=== PATIENT | female | born 1990 | race American Indian/Alaskan Native ===

== ENCOUNTER 2020-11-18 04:22 | Emergency (ER) | payer SELFPAY ==
[2020-11-18 05:57] LABS: Basophils % (Auto) 0.5 % (0.0-1.8); Eosinophils # (Auto) 0.1 K/mm3 (0.0-0.4); Eosinophils % (Auto) 1.9 % (0.0-4.3); Hemoglobin 13.4 gm/dl (10.1-14.3); Lymphocytes # (Auto) 1.9 K/mm3 (1.2-5.4); Lymphocytes % (Auto) 31.2 % (13.4-35.0); Mean Corpuscular HGB Conc 34 % (30-34); Mean Corpuscular Volume 93 fl (79-97); Monocytes # (Auto) 0.7 K/mm3 (0.0-0.8); Monocytes % (Auto) 11.1 % (0.0-7.3); Platelet Count 228 K/mm3 (140-440); Red Blood Count 4.19 M/mm3 (3.65-5.03); Red Cell Distribution Width 13.2 % (13.2-15.2)
[2020-11-18 06:07] LABS: BUN/Creatinine Ratio 16; Blood Urea Nitrogen 11 mg/dL (7-17); Calcium 9.1 mg/dL (8.4-10.2); Hemolysis Index 3
--- NOTE | 2020-11-18 06:21 | Emergency Department Report ---
HPI - General Chief Complaint: Vaginal Bleeding Time Seen by Provider: 11/18/20 05:59 - HPI HPI: This is a 30-year-old female presents to the emergency department with a complaint of seeing some blood when she wipes after using the bathroom. This is concerning to the patient as she says that she is 5 weeks and 3 days . She denies any other vaginal bleeding. She denies any dysuria, vaginal discharge, abdominal or pelvic pain. With this she is with a 6-year-old child. She had multiple home positive test. Last week she went to a clinic where she had a positive urine test as well. She denies any other past medical history. ED Past Medical Hx - Past Medical History Previous Medical History?: No - Surgical History Past Surgical History?: No - Social History Smoking Status: Never Smoker Substance Use Type: None ED Review of Systems ROS: Stated complaint: BLEEDING/5WKS PREG Other details as noted in HPI Comment: All other systems reviewed and negative Constitutional: denies: chills, fever Eyes: denies: eye pain, vision change ENT: denies: ear pain, throat pain Respiratory: denies: cough, shortness of breath Cardiovascular: denies: chest pain, palpitations Gastrointestinal: denies: abdominal pain, vomiting Genitourinary: other (Mild vaginal bleeding seen when using the bathroom). de nies: dysuria Musculoskeletal: denies: back pain, arthralgia Skin: denies: rash, lesions Neurological: denies: headache, weakness Physical Exam - Physical Exam Vital Signs: Vital Signs 11/18/20 04:25 Temperature 98 F Pulse Rate 87 Respiratory 16 Rate Blood Pressure 120/87 [Right] O2 Sat by Pulse 98 Oximetry Physical Exam: GENERAL: The patient is well-developed well-nourished. HENT: Normocephalic. Atraumatic. Patient has moist mucous membranes. EYES: Extraocular motions are intact. NECK: Supple. Trachea is midline. CHEST/LUNGS: Clear to auscultation. There is no respiratory distress noted. HEART/CARDIOVASCULAR: Regular. There is no tachycardia. There is no murmur. ABDOMEN: Abdomen is soft, nontender. Patient has normal bowel sounds. SKIN: Skin is warm and dry. NEURO: The patient is awake, alert, and oriented. The patient is cooperative. The patient has no focal neurologic deficits. Normal speech. MUSCULOSKELETAL: There is no tenderness or deformity. There is no limitation range of motion. ED Course Vital Signs 11/18/20 04:25 Temperature 98 F Pulse Rate 87 Respiratory 16 Rate Blood Pressure 120/87 [Right] O2 Sat by Pulse 98 Oximetry - Consultations Consultation #1: 11/18/20 07:10 I spoke to the RETAIL MERCHANDISING MANAGER on-call, Dr. Montiel. He agrees that it does not han ear consistent with an ectopic given the beta hCG of 16 and the patient's lack of any abdominal/back/pelvic pains. He agrees that the patient should follow-up for a repeat beta-hCG and reevaluation in about 5 to 6 days. Ectopic precautions to be given. ED Medical Decision Making - Lab Data Result diagrams: 11/18/20 05:19 11/18/20 05:19 Lab Results 11/18/20 11/18/20 11/18/20 Range/Units 05:19 05:19 05:19 WBC 6.0 (4.5-11.0) K/mm3 RBC 4.19 (3.65-5.03) M/mm3 Hgb 13.4 (10.1-14.3) gm/dl Hct 39.0 (30.3-42.9) % MCV 93 (79-97) fl MCH 32 (28-32) pg MCHC 34 (30-34) % RDW 13.2 (13.2-15.2) % Plt Count 228 (140-440) K/mm3 Lymph % (Auto) 31.2 (13.4-35.0) % Swift % (Auto) 11.1 H (0.0-7.3) % Eos % (Auto) 1.9 (0.0-4.3) % Baso % (Auto) 0.5 (0.0-1.8) % Lymph # (Auto) 1.9 (1.2-5.4) K/mm3 Swift # (Auto) 0.7 (0.0-0.8) K/mm3 Eos # (Auto) 0.1 (0.0-0.4) K/mm3 Baso # (Auto) 0.0 (0.0-0.1) K/mm3 Seg Neutrophils % 55.3 (40.0-70.0) % Seg Neutrophils # 3.3 (1.8-7.7) K/mm3 Sodium 137 (137-145) mmol/L Potassium 4.2 (3.6-5.0) mmol/L Chloride 104.2 (98-107) mmol/L Carbon Dioxide 24 (22-30) mmol/L Anion Gap 13 mmol/L BUN 11 (7-17) mg/dL Creatinine 0.7 (0.6-1.2) mg/dL Estimated GFR > 60 ml/min BUN/Creatinine Ratio 16 % Glucose 83 (65-100) mg/dL Calcium 9.1 (8.4-10.2) mg/dL HCG, Quant 16.64 H (0-4) mIU/mL Blood Type 11/18/20 Range/Units 05:19 WBC (4.5-11.0) K/mm3 RBC (3.65-5.03) M/mm3 Hgb (10.1-14.3) gm/dl Hct (30.3-42.9) % MCV (79-97) fl MCH (28-32) pg MCHC (30-34) % RDW (13.2-15.2) % Plt Count (140-440) K/mm3 Lymph % (Auto) (13.4-35.0) % Swift % (Auto) (0.0-7.3) % Eos % (Auto) (0.0-4.3) % Baso % (Auto) (0.0-1.8) % Lymph # (Auto) (1.2-5.4) K/mm3 Swift # (Auto) (0.0-0.8) K/mm3 Eos # (Auto) (0.0-0.4) K/mm3 Baso # (Auto) (0.0-0.1) K/mm3 Seg Neutrophils % (40.0-70.0) % Seg Neutrophils # (1.8-7.7) K/mm3 Sodium (137-145) mmol/L Potassium (3.6-5.0) mmol/L Chloride (98-107) mmol/L Carbon Dioxide (22-30) mmol/L Anion Gap mmol/L BUN (7-17) mg/dL Creatinine (0.6-1.2) mg/dL Estimated GFR ml/min BUN/Creatinine Ratio % Glucose (65-100) mg/dL Calcium (8.4-10.2) mg/dL HCG, Quant (0-4) mIU/mL Blood Type O POSITIVE - Radiology Data Radiology results: report reviewed ULTRASOUND OBSTETRIC INDICATION / CLINICAL INFORMATION: Vaginal bleeding. Clinical Gestational Age (GA) in weeks, days: 5.2 TECHNIQUE: Transabdominal and Transvaginal. COMPARISON: None available. FINDINGS: GESTATIONAL SAC: Not seen YOLK SAC: Not seen EMBRYO/FETUS: Not seen Small nabothian cysts are noted in the cervix. ADNEXA: There is a 1.6 cm complex nodule in the left ovary. There are small follicular cysts. FREE FLUID: There is free fluid in the cul-de-sac ADDITIONAL FINDINGS: None. IMPRESSION: 1. No intrauterine is seen. 2. There is free fluid in the cul-de-sac. There is a 1.6 cm complex nodule in the left ovary. There is no increased vascularity. - Medical Decision Making This patient presents with some mild vaginal bleeding seen only while wiping. She is about 5 weeks and 3 days after having multiple home urine tests and 1+ urine test and a clinic. The patient had a transvaginal/ ultrasound that did not show any evidence of a intrauterine . There was a small left ovarian complex nodule and some mild fluid in the pelvic cul-de-sac. The patient has a beta-hCG of 16. Given the positive urine tests at home and in the clinic, which usually have a cut off of a beta-hCG of 50, this current beta-hCG and ultrasound appears most consistent with a spontaneous miscarriage. However, given the pelvic fluid and the ovarian complex nodule, I did speak with the RETAIL MERCHANDISING MANAGER on-call who agrees that the patient is safe for discharge home with outpatient follow-up. The patient later tells me that she has an appointment this afternoon to establish care with an RETAIL MERCHANDISING MANAGER. She was told to keep this appointment. She will return to the emergency department with any worsening of her symptoms or with any acute distress. Critical Care Time: No Critical care attestation.: If time is entered above; I have spent that time in minutes in the direct care of this critically ill patient, excluding procedure time. ED Disposition Clinical Impression: Threatened miscarriage Disposition: DC-01 TO HOME OR SELFCARE Is pt being admited?: No Condition: Stable Instructions: Threatened Miscarriage Additional Instructions: Please follow-up with your RETAIL MERCHANDISING MANAGER this morning as previously scheduled. Your beta hCG today was 16. Return to the emergency department with any worsening of your symptoms, new or concerning symptoms not addressed during this current emergency department visit, or with any acute distress. Please make sure you are seen immediately with any increased vaginal bleeding, sharp or cramping pelvic pains. Referrals: DAVID MARIE MD [Staff Physician] - 11/18/20 Time of Disposition: 07:12
--- NOTE | 2020-11-18 06:24 | Ultrasound Report ---
ULTRASOUND OBSTETRIC INDICATION / CLINICAL INFORMATION: Vaginal bleeding. Clinical Gestational Age (GA) in weeks, days: 5.2 TECHNIQUE: Transabdominal and Transvaginal. COMPARISON: None available. FINDINGS: GESTATIONAL SAC: Not seen YOLK SAC: Not seen EMBRYO/FETUS: Not seen Small nabothian cysts are noted in the cervix. ADNEXA: There is a 1.6 cm complex nodule in the left ovary. There are small follicular cysts. FREE FLUID: There is free fluid in the cul-de-sac ADDITIONAL FINDINGS: None. IMPRESSION: 1. No intrauterine is seen. 2. There is free fluid in the cul-de-sac. There is a 1.6 cm complex nodule in the left ovary. There i s no increased vascularity. Note: These findings could indicate too early to visualize or spontaneous . Ectopic cannot be excluded based upon this ultrasound. Correlation with serum beta hCG level is re commended. Follow-up ultrasound should be obtained as clinically warranted. Signer Name: Kirit John MD Signed: 11/18/2020 6:20 AM Workstation Name: [id number]
[2020-11-18 07:20] VITALS: BP 128/61
== END 2020-11-18 07:19 | disposition home or self-care (01) ==
LOC: ED 04:22
DX: O20.0 Threatened abortion (principal); Z79.899 Other long term (current) drug therapy; Z3A.01 Less than 8 weeks gestation of pregnancy
CPT/HCPCS: 36415; 76801; 76817; 80048; 84702; 85025; 86900; 86901

== ENCOUNTER 2021-04-03 11:29 | Emergency (ER) | payer MEDICAID ==
[2021-04-03 12:09] VITALS: BP 135/87
[2021-04-03 12:41] LABS: Basophils % (Auto) 0.3 % (0.0-1.8); Eosinophils % (Auto) 0.5 % (0.0-4.3); Hematocrit 39.8 % (30.3-42.9); Hemoglobin 13.1 gm/dl (10.1-14.3); Lymphocytes # (Auto) 2.3 K/mm3 (1.2-5.4); Lymphocytes % (Auto) 27.3 % (13.4-35.0); Mean Corpuscular HGB Conc 33 % (30-34); Mean Corpuscular Volume 92 fl (79-97); Monocytes # (Auto) 0.7 K/mm3 (0.0-0.8); Monocytes % (Auto) 8.3 % (0.0-7.3); Platelet Count 262 K/mm3 (140-440); Red Blood Count 4.33 M/mm3 (3.65-5.03); Red Cell Distribution Width 13.4 % (13.2-15.2)
[2021-04-03 13:02] LABS: Blood Urea Nitrogen 5 mg/dL (7-17); Calcium 8.7 mg/dL (8.4-10.2); Hemolysis Index 2
[2021-04-03 13:14] LABS: BUN/Creatinine Ratio 8
[2021-04-03] MEDS ORDERED: POTASSIUM CHLORIDE ER 20 MEQ TAB PO ONE (13:22)
[2021-04-03 13:34] LABS: Bilirubin,Urine NEG (Negative); Blood,Urine SM (Negative); Color,Urine Yellow (Yellow); Mucus,Urine 3+ /HPF; Urobilinogen,Urine < 2.0 mg/dL (<2.0)
--- NOTE | 2021-04-03 14:57 | Ultrasound Report ---
US OB <= 14 weeks fetus INDICATION / CLINICAL INFORMATION: pelvic pain. TECHNIQUE: Transabdominal. COMPARISON: None available. FINDINGS: UTERUS: Appears within normal limits. GESTATIONAL SAC: Well-defined oval shape and intrauterine in location. Measures 0.5 cm. YOLK SAC: None identified.. EMBRYO/FETUS: - [place]-Rump Length = no pole identified. ADNEXA: No significant abnormality. FREE FLUID: None. ADDITIONAL FINDINGS: None. IMPRESSION: 1. Gestational sac with no pole consistent with 5 weeks 2 days. Findings could be related to e faye intrauterine . Follow-up beta hCG and sonograms as clinically indicated. Signer Name: Marlon Lance MD Signed: 04/03/2021 2:52 PM Workstation Name: [id number]
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
--- NOTE | 2021-04-04 08:42 | Ultrasound Report ---
ULTRASOUND OBSTETRIC Indication: pelvic pain Findings: No intrauterine is identified. The right ovary appears abnormal and there is a complex 2.2 cm structure within the right adnexa with its significant peripheral Doppler flow. Within the uterus there is a 2 mm hypoechoic sac but is ultimately nonspecific no obvious yolk sac or pole is identified within this intrauterine structure. There is small free pelvic fluid which is slightly complex. The left ovary appears grossly unremarkable with multiple peripheral follicles l cayetano structures. IMPRESSION: No intrauterine identified. There is a complex 2 cm structure within the right adnexa that demonstrates peripheral Doppler flow but appears complex centrally. While this right adne xal lesion could represent a complex corpus luteal cyst, an ectopic cannot be excluded base d on the overall appearance. Short-term sonographic follow-up/CORPORATE COMPLIANCE MANAGER when consultation is suggested. There is small free pelvic fluid with some internal echogenicity which could represent a small amount pelvic hemorrhage. Signer Name: Missael Bo MD Signed: 04/04/2021 7:09 AM Workstation Name: [id number]
== END 2021-04-03 16:00 | disposition home or self-care (01) ==
LOC: ED 11:29
DX: O9A.311 Physical abuse complicating pregnancy, first trimester (principal); Z3A.01 Less than 8 weeks gestation of pregnancy; R10.2 Pelvic and perineal pain
CPT/HCPCS: 36415; 76801; 76817; 80048; 81001; 84702; 85025; 99284